=== PATIENT | male | born 1945 | race American Indian/Alaskan Native ===

== ENCOUNTER 2018-05-14 10:50 | Inpatient (IN) | payer MEDICARE ==
[~2018-05-14] VITALS: Ht 165.1 cm; Wt 88.6 kg
[2018-05-14 11:39] LABS: BASOPHILS % (AUTO) 0.1 % (0-1); EOSINOPHILS # (AUTO) 0.1 X10'3 (0-0.9); HEMATOCRIT 43.9 % (42.0-52.0); HEMOGLOBIN 14.7 g/dl (14.0-17.9); LYMPHOCYTES # (AUTO) 0.9 X10'3 (1.1-4.8); LYMPHOCYTES % (AUTO) 10.4 % (21-51); MEAN CORPUSCULAR HEMOGLOBIN 30.8 PG (27.0-31.0); MEAN CORPUSCULAR HGB CONC 33.5 % (33.0-36.5); MEAN CORPUSCULAR VOLUME 91.9 FL (78-98); MEAN PLATELET VOLUME 8.5 FL (7.4-10.4); MONOCYTES # (AUTO) 0.7 X10'3 (0-0.9); NEUTROPHILS % (AUTO) 80.5 % (42-75); PLATELET COUNT 177 X10'3 (140-440); RED BLOOD COUNT 4.78 X10'6 (4.70-6.10); RED CELL DISTRIBUTION WIDTH 13.7 % (11.5-14.5); WHITE BLOOD COUNT 8.6 X10'3 (4.5-11.0)
[2018-05-14] MEDS ORDERED: normal saline 1000ML IV soln IVB ONE (11:40)
[2018-05-14 12:00] LABS: PARTIAL THROMBOPLASTIN TIME 34 SECONDS (22-32); PROTHROMBIN TIME 9.9 SECONDS (9.0-12.0)
[2018-05-14 12:05] LABS: ALANINE AMINOTRANSFERASE 31 U/L (12-78); ALBUMIN 3.5 G/DL (3.4-5.0); ALBUMIN/GLOBULIN RATIO 0.8 (1.1-1.5); ALKALINE PHOSPHATASE 67 IU/L (46-116); ANION GAP 7 (8-16); ASPARTATE AMINO TRANSFERASE 22 U/L (10-37); BILIRUBIN,TOTAL 0.7 MG/DL (0.1-1.0); BLOOD UREA NITROGEN 17 MG/DL (7-18); BUN/CREATININE RATIO 16.7 (5.4-32.0); CALCIUM 8.8 MG/DL (8.5-10.1); CHLORIDE 102 MMOL/L (99-107); CREATININE 1.02 MG/DL (0.60-1.10); GLUCOSE 135 MG/DL (70-104); MAGNESIUM 1.7 MG/DL (1.5-2.4); POTASSIUM 3.7 MMOL/L (3.5-5.1); SODIUM 141 MMOL/L (135-145); TOTAL CARBON DIOXIDE 32.2 MMOL/L (24-32); eGFR 72 ML/MIN
[2018-05-14] MEDS ORDERED: ipratropium/albuterol 3ml nebule NEB ONE (12:30)
[2018-05-14] MEDS ORDERED: CefTRIAXone/D5W-Rocephin 1gm 50 ML IV ONE (13:20)
[2018-05-14 13:24] LABS: CLARITY,URINE CLEAR (Clear); COLOR,URINE YELLOW (Yellow); GLUCOSE, URINE NEGATIVE (Neg); KETONES,URINE NEGATIVE (Neg); LEUKOCYTE ESTERASE ,URINE NEGATIVE (Neg); NITRITES, URINE NEGATIVE (Neg); OCCULT BLOOD,URINE NEGATIVE (Neg); PH,URINE 7.5 (4.8-8.0); PROTEIN,URINE 100 mg/dl (Neg)
[2018-05-14 13:40] LABS: UA COLLECTION TYPE CLN CATCH MIDSTREAM
[2018-05-14] MEDS ORDERED: magnesium 4gm in 100ml NS 100 ML IV PRN (13:40)
[2018-05-14] MEDS ORDERED: magnesium hydroxide 30ml (MOM) UD suspension PO PRN (13:40)
[2018-05-14] MEDS ORDERED: potassium Cl 20 mEq SR tablet PO PRN ×2 (13:40)
[2018-05-14] MEDS ORDERED: ondansetron/PF 4mg/2ml inj IV PRN (13:40)
[2018-05-14] MEDS ORDERED: magnesium Cl slow-release 64mg tablet PO PRN (13:40)
[2018-05-14] MEDS ORDERED: potassium Cl 40MEQ/NS 500ml 500 ML IV PRN ×2 (13:40)
[2018-05-14] MEDS ORDERED: mag hydrox/Alum hydrox/simeth 30ml oral suspension PO PRN (13:40)
[2018-05-14 13:43] LABS: BACTERIA,URINE NONE SEEN /HPF (Neg); COARSE GRANULAR CAST 0-3 /LPF (NEGATIVE); HYALINE CASTS 0-3 /LPF (NEGATIVE); MUCUS STRANDS NONE SEEN /LPF (Neg); RBC,URINE 0-2 /HPF (0-2); SQUAMOUS EPITHELIAL CELL,UR NONE SEEN /LPF (FEW); WBC,URINE 0-4 /HPF (0-4)
[2018-05-14] MEDS: CefTRIAXone/D5W-Rocephin 1gm 50 ML IV SCH (13:55)
[2018-05-14] MEDS ORDERED: azithromycin/NS 500mg/250ml 250 ML IV ONE ×2 (14:05→15:50)
[2018-05-14] MEDS: normal saline 1000ml 1,000 ML IV SCH ×2 (14:31→17:49)
[2018-05-14] MEDS ORDERED: NAPR-1154 PO (14:49)
[2018-05-14] MEDS ORDERED: GABA-532 PO (14:49)
[2018-05-14] MEDS ORDERED: PSEU60TA22 PO (14:49)
[2018-05-14 16:00] VITALS: BP 146/64
[2018-05-14] MEDS ORDERED: morphine 2 MG/ML inj. syringe IV PRN (16:00)
[2018-05-14] MEDS: acetaminophen 325mg tablet PO PRN (16:18)
[2018-05-14] MEDS: methylPREDNISolone sod succ/PF 40mg inj. IV SCH ×2 (17:49→23:42)
[2018-05-14] MEDS: lisinopril 10 MG tablet PO SCH (17:50)
[2018-05-14 18:00] VITALS: BP 146/64
[2018-05-14] MEDS: heparin, porcine 5000 units/ml vial SQ SCH (19:53)
[2018-05-14] MEDS ORDERED: GUAI600T45 PO (20:13)
[2018-05-14] MEDS ORDERED: ASPI-529 PO (20:13)
[2018-05-14] MEDS ORDERED: ACET-2119 PO (20:13)
[2018-05-14] MEDS: gabapentin 300mg capsule PO SCH (20:27)
[2018-05-14] MEDS ORDERED: pneumococcal 23-VAL P-sac vacc 25 mcg/0.5ml vial IMVAC ONE (20:30)
[2018-05-14] MEDS ORDERED: albuterol 2.5 MG/3 ML nebule NEB PRN (21:10)
[2018-05-14 22:00] VITALS: BP 134/74
[2018-05-15 06:00] VITALS: BP 140/94
[2018-05-15 06:12] LABS: BASOPHILS % (AUTO) 0.1 % (0-1); EOSINOPHILS % (AUTO) 0 % (0-6); HEMATOCRIT 42.2 % (42.0-52.0); HEMOGLOBIN 14.1 g/dl (14.0-17.9); LYMPHOCYTES # (AUTO) 0.7 X10'3 (1.1-4.8); LYMPHOCYTES % (AUTO) 6.8 % (21-51); MEAN CORPUSCULAR HEMOGLOBIN 30.8 PG (27.0-31.0); MEAN CORPUSCULAR HGB CONC 33.5 % (33.0-36.5); MEAN PLATELET VOLUME 8.6 FL (7.4-10.4); MONOCYTES # (AUTO) 0.3 X10'3 (0-0.9); MONOCYTES % (AUTO) 2.7 % (2-12); NEUTROPHILS % (AUTO) 90.4 % (42-75); PLATELET COUNT 191 X10'3 (140-440); RED BLOOD COUNT 4.59 X10'6 (4.70-6.10); RED CELL DISTRIBUTION WIDTH 13.7 % (11.5-14.5); WHITE BLOOD COUNT 11.1 X10'3 (4.5-11.0)
[2018-05-15 06:38] LABS: ALANINE AMINOTRANSFERASE 29 U/L (12-78); ALBUMIN 2.7 G/DL (3.4-5.0); ALBUMIN/GLOBULIN RATIO 0.6 (1.1-1.5); ALKALINE PHOSPHATASE 52 IU/L (46-116); ANION GAP 5 (8-16); ASPARTATE AMINO TRANSFERASE 21 U/L (10-37); BILIRUBIN,TOTAL 0.6 MG/DL (0.1-1.0); BLOOD UREA NITROGEN 16 MG/DL (7-18); BUN/CREATININE RATIO 18.4 (5.4-32.0); CALCIUM 8.7 MG/DL (8.5-10.1); CHLORIDE 104 MMOL/L (99-107); CREATININE 0.87 MG/DL (0.60-1.10); GLUCOSE 191 MG/DL (70-104); MAGNESIUM 1.8 MG/DL (1.5-2.4); POTASSIUM 4.5 MMOL/L (3.5-5.1); SODIUM 140 MMOL/L (135-145); TOTAL CARBON DIOXIDE 30.6 MMOL/L (24-32); TOTAL PROTEIN 7.2 G/DL (6.4-8.2); eGFR 87 ML/MIN
[2018-05-15] MEDS: gabapentin 300mg capsule PO SCH ×3 (07:15→20:04)
[2018-05-15] MEDS: CefTRIAXone/D5W-Rocephin 1gm 50 ML IV SCH (07:15)
[2018-05-15] MEDS: methylPREDNISolone sod succ/PF 40mg inj. IV SCH ×3 (07:15→23:57)
[2018-05-15] MEDS: lisinopril 10 MG tablet PO SCH (07:16)
[2018-05-15] MEDS: heparin, porcine 5000 units/ml vial SQ SCH ×2 (07:17→20:04)
[2018-05-15] MEDS ORDERED: azithromycin/NS 500mg/250ml 250 ML IV SCH (08:00)
[2018-05-15] MEDS: K and/or MAG REPLACEMENT MC SCH (08:00)
[2018-05-15] MEDS: acetaminophen 325mg tablet PO PRN (08:48)
[2018-05-15] MEDS ORDERED: HYDROcodone/acetaminophen 5mg/325mg tablet PO PRN (10:40)
[2018-05-15] MEDS ORDERED: naproxen 500mg tablet PO PRN (10:50)
[2018-05-15] MEDS: levoFLOXACIN-Levaquin 750MG/D5 150 ML IV SCH (10:58)
[2018-05-15] MEDS: normal saline 1000ml 1,000 ML IV SCH (10:59)
[2018-05-15] MEDS: ipratropium/albuterol 3ml nebule NEB SCH ×4 (11:13→23:36)
[2018-05-15 18:00] VITALS: BP 127/84
[2018-05-15] MEDS: guaiFENesin ER 600mg tablet PO SCH (20:04)
[2018-05-15] MEDS: acetaminophen 325mg tablet PO SCH (20:04)
[2018-05-15 22:00] VITALS: BP 136/81
[2018-05-16] MEDS: ipratropium/albuterol 3ml nebule NEB SCH ×4 (03:25→16:52)
[2018-05-16] MEDS: normal saline 1000ml 1,000 ML IV SCH (05:12)
[2018-05-16 06:33] LABS: BASOPHILS % (AUTO) 0.2 % (0-1); EOSINOPHILS # (AUTO) 0.2 X10'3 (0-0.9); EOSINOPHILS % (AUTO) 1.3 % (0-6); HEMATOCRIT 39.4 % (42.0-52.0); HEMOGLOBIN 13.2 g/dl (14.0-17.9); LYMPHOCYTES # (AUTO) 0.7 X10'3 (1.1-4.8); LYMPHOCYTES % (AUTO) 5.5 % (21-51); MEAN CORPUSCULAR HEMOGLOBIN 30.8 PG (27.0-31.0); MEAN CORPUSCULAR HGB CONC 33.5 % (33.0-36.5); MEAN CORPUSCULAR VOLUME 91.9 FL (78-98); MEAN PLATELET VOLUME 8.9 FL (7.4-10.4); MONOCYTES # (AUTO) 0.9 X10'3 (0-0.9); MONOCYTES % (AUTO) 6.9 % (2-12); NEUTROPHILS # (AUTO) 11.7 X10'3 (1.8-7.7); NEUTROPHILS % (AUTO) 86.1 % (42-75); PLATELET COUNT 259 X10'3 (140-440); RED BLOOD COUNT 4.29 X10'6 (4.70-6.10); RED CELL DISTRIBUTION WIDTH 13.6 % (11.5-14.5); WHITE BLOOD COUNT 13.6 X10'3 (4.5-11.0)
[2018-05-16 06:53] LABS: ALANINE AMINOTRANSFERASE 33 U/L (12-78); ALBUMIN 2.9 G/DL (3.4-5.0); ALBUMIN/GLOBULIN RATIO 0.7 (1.1-1.5); ALKALINE PHOSPHATASE 53 IU/L (46-116); ANION GAP 11 (8-16); ASPARTATE AMINO TRANSFERASE 24 U/L (10-37); BILIRUBIN,TOTAL 0.4 MG/DL (0.1-1.0); BLOOD UREA NITROGEN 26 MG/DL (7-18); BUN/CREATININE RATIO 27.4 (5.4-32.0); CALCIUM 8.8 MG/DL (8.5-10.1); CHLORIDE 105 MMOL/L (99-107); CREATININE 0.95 MG/DL (0.60-1.10); GLUCOSE 186 MG/DL (70-104); MAGNESIUM 1.9 MG/DL (1.5-2.4); POTASSIUM 3.9 MMOL/L (3.5-5.1); SODIUM 142 MMOL/L (135-145); TOTAL CARBON DIOXIDE 26.3 MMOL/L (24-32); TOTAL PROTEIN 7.1 G/DL (6.4-8.2); eGFR 78 ML/MIN
[2018-05-16 06:58] VITALS: BP 157/88
[2018-05-16] MEDS: K and/or MAG REPLACEMENT MC SCH (08:00)
[2018-05-16] MEDS: heparin, porcine 5000 units/ml vial SQ SCH ×2 (08:14→20:17)
[2018-05-16] MEDS: lisinopril 10 MG tablet PO SCH (08:14)
[2018-05-16] MEDS: guaiFENesin ER 600mg tablet PO SCH ×2 (08:14→20:16)
[2018-05-16] MEDS: gabapentin 300mg capsule PO SCH ×3 (08:14→20:16)
[2018-05-16] MEDS: levoFLOXACIN-Levaquin 750MG/D5 150 ML IV SCH (08:14)
[2018-05-16] MEDS: acetaminophen 325mg tablet PO SCH ×2 (08:14→20:16)
[2018-05-16] MEDS: methylPREDNISolone sod succ/PF 40mg inj. IV SCH ×2 (08:15→16:39)
[2018-05-16] MEDS: aspirin 325mg tablet PO SCH (08:15)
[2018-05-16] MEDS ORDERED: iohexol 350MG/ML 100ml bottle IV ONE (10:09)
[2018-05-16 11:15] VITALS: BP 140/81
[2018-05-16 18:00] VITALS: BP 160/97
[2018-05-16] MEDS: carvedilol 6.25mg tablet PO SCH (20:16)
[2018-05-16 20:19] VITALS: BP 164/104
[2018-05-16] MEDS: lactobacillus rhamnosus 10,000 MMU CELLS/CAPSULE PO SCH (20:24)
[2018-05-16 22:00] VITALS: BP 168/95
[2018-05-17 05:56] LABS: BASOPHILS % (AUTO) 0 % (0-1); EOSINOPHILS # (AUTO) 0.2 X10'3 (0-0.9); EOSINOPHILS % (AUTO) 1.7 % (0-6); HEMATOCRIT 40.7 % (42.0-52.0); HEMOGLOBIN 13.6 g/dl (14.0-17.9); LYMPHOCYTES # (AUTO) 0.7 X10'3 (1.1-4.8); MEAN CORPUSCULAR HEMOGLOBIN 30.7 PG (27.0-31.0); MEAN CORPUSCULAR HGB CONC 33.4 % (33.0-36.5); MEAN CORPUSCULAR VOLUME 91.8 FL (78-98); MEAN PLATELET VOLUME 8.6 FL (7.4-10.4); MONOCYTES # (AUTO) 1.2 X10'3 (0-0.9); MONOCYTES % (AUTO) 8.1 % (2-12); NEUTROPHILS # (AUTO) 12.5 X10'3 (1.8-7.7); NEUTROPHILS % (AUTO) 85.2 % (42-75); PLATELET COUNT 312 X10'3 (140-440); RED BLOOD COUNT 4.43 X10'6 (4.70-6.10); RED CELL DISTRIBUTION WIDTH 13.7 % (11.5-14.5); WHITE BLOOD COUNT 14.7 X10'3 (4.5-11.0)
[2018-05-17 06:06] LABS: ALANINE AMINOTRANSFERASE 37 U/L (12-78); ALBUMIN 2.8 G/DL (3.4-5.0); ALBUMIN/GLOBULIN RATIO 0.7 (1.1-1.5); ALKALINE PHOSPHATASE 58 IU/L (46-116); ANION GAP 9 (8-16); ASPARTATE AMINO TRANSFERASE 22 U/L (10-37); BILIRUBIN,TOTAL 0.5 MG/DL (0.1-1.0); BLOOD UREA NITROGEN 29 MG/DL (7-18); BUN/CREATININE RATIO 29.9 (5.4-32.0); CALCIUM 8.7 MG/DL (8.5-10.1); CHLORIDE 106 MMOL/L (99-107); CREATININE 0.97 MG/DL (0.60-1.10); GLUCOSE 130 MG/DL (70-104); POTASSIUM 4.1 MMOL/L (3.5-5.1); SODIUM 142 MMOL/L (135-145); TOTAL CARBON DIOXIDE 27.2 MMOL/L (24-32); TOTAL PROTEIN 6.8 G/DL (6.4-8.2); eGFR 76 ML/MIN
[2018-05-17 06:33] VITALS: BP 169/98
[2018-05-17] MEDS: lactobacillus rhamnosus 10,000 MMU CELLS/CAPSULE PO SCH (07:40)
[2018-05-17] MEDS: gabapentin 300mg capsule PO SCH ×2 (07:40→12:07)
[2018-05-17] MEDS: levoFLOXACIN-Levaquin 750MG/D5 150 ML IV SCH (07:40)
[2018-05-17] MEDS: aspirin 325mg tablet PO SCH (07:40)
[2018-05-17] MEDS: K and/or MAG REPLACEMENT MC SCH (07:41)
[2018-05-17] MEDS: guaiFENesin ER 600mg tablet PO SCH (07:41)
[2018-05-17] MEDS: lisinopril 10 MG tablet PO SCH (07:41)
[2018-05-17] MEDS: carvedilol 6.25mg tablet PO SCH (07:41)
[2018-05-17] MEDS: acetaminophen 325mg tablet PO SCH (07:41)
[2018-05-17] MEDS: heparin, porcine 5000 units/ml vial SQ SCH (07:42)
[2018-05-17 11:33] VITALS: BP 146/78
[2018-05-17] MEDS ORDERED: LISI10TA4 PO (13:03)
[2018-05-17] MEDS ORDERED: CARV6.253 PO (13:03)
[2018-05-17] MEDS ORDERED: LEVO750T21 PO (13:03)
== END 2018-05-17 13:45 | disposition home or self-care (01) | DRG 871 ==
LOC: ER 10:51 → ED HOLD 13:40 → ORTHO 4S 15:49 → ED HOLD 05-15 10:23 → ORTHO 4S 05-15 10:25
PROVIDERS: ADMIT Internal Medicine; ATTEND Internal Medicine
PROC: B32T1ZZ Computerized Tomography (CT Scan) of Left Pulmonary Artery using Low Osmolar Contrast (ICD-10-PCS; principal; 2018-05-16)
PROC: B3201ZZ Computerized Tomography (CT Scan) of Thoracic Aorta using Low Osmolar Contrast (ICD-10-PCS; 2018-05-16)
PROC: B32S1ZZ Computerized Tomography (CT Scan) of Right Pulmonary Artery using Low Osmolar Contrast (ICD-10-PCS; 2018-05-16)
DX: A41.9 Sepsis, unspecified organism (principal); J18.1 Lobar pneumonia, unspecified organism; J96.01 Acute respiratory failure with hypoxia; G62.9 Polyneuropathy, unspecified; G89.4 Chronic pain syndrome; K86.9 Disease of pancreas, unspecified; I10 Essential (primary) hypertension; M54.9 Dorsalgia, unspecified; R91.1 Solitary pulmonary nodule; Z88.5 Allergy status to narcotic agent; Z79.899 Other long term (current) drug therapy
CPT/HCPCS: 36415; 71046; 71275; 80053; 81001; 83605; 83735; 84145; 85025; 85610; 85730; 87040; 87070; 87502; 87503; 93005; 93306; 94640; 94667; 94668; 94760; 96360; 99285; G0378; J0456; J0696; J1644; J1956; J2920; J7030; Q9967

== ENCOUNTER 2021-11-13 15:35 | Outpatient (CLI) | payer MEDICARE ==
[~2021-11-13] VITALS: Ht 165.1 cm; Wt 88.5 kg
[~2021-11-13 15:35] MED LIST: ACET-2119 PO; ASPI-529 PO; CARV6.253 PO; GABA-532 PO; GUAI600T45 PO; LISI10TA27 PO; NAPR-1154 PO
[2021-11-13] MEDS ORDERED: albuterol 2.5 MG/3 ML nebule NEB ONE (16:20)
== END 2021-11-13 23:59 | disposition home or self-care (01) ==
LOC: RT 15:35
PROVIDERS: ATTEND Family Medicine
DX: R94.2 Abnormal results of pulmonary function studies (principal); R06.00 Dyspnea, unspecified
CPT/HCPCS: 94060; 94760

== ENCOUNTER 2024-09-12 08:57 | Outpatient (CLI) | payer MEDICARE ==
[~2024-09-12 08:57] MED LIST changes: +CYCL-394 PO; +FLUT1AER INH; +GABA300C PO; +LOSA50TA64 PO; +MELO5CAP3; +PRED10TA PO
[2024-09-12 09:47] LABS: ALBUMIN 3.8 G/DL (3.4-5.0); ANION GAP 7 (8-16); BLOOD UREA NITROGEN 21 MG/DL (7-18); BUN/CREATININE RATIO 23.1 (10.0-20.0); CALCIUM 8.8 MG/DL (8.5-10.1); CHLORIDE 108 MMOL/L (99-107); CREATININE 0.91 MG/DL (0.60-1.10); GLUCOSE 121 MG/DL (70-104); POTASSIUM 4.3 MMOL/L (3.5-5.1); SODIUM 141 MMOL/L (135-145); TOTAL CARBON DIOXIDE 26.2 MMOL/L (24-32); eGFR 81 ML/MIN
[2024-09-12] MEDS ORDERED: iohexol 300mg/ml 100ml inj. ONE (09:55)
--- NOTE | 2024-09-12 10:59 | RADIOLOGY REPORT ---
Date: 09/12/2024 09:36 AM Examination: DI ABDOMEN,SINGLE VIEW(KUB) History: GROSS HEMATURIA Comparison: None TECHNIQUE: Frontal views of the abdomen was obtained. FINDINGS: Bowel gas pattern is unremarkable. The lung bases are unremarkable. No acute osseous abnormality identified. IMPRESSION: Nonobstructive bowel gas pattern. Surgical clips project over the right upper quadrant.
--- NOTE | 2024-09-12 11:11 | RADIOLOGY REPORT ---
EXAM: CT CT ABDOMEN PELVIS W/ IV CONTRAST HISTORY: GROSS HEMATURIA COMPARISON: KUB from earlier same day TECHNIQUE: Helical CT images of the abdomen and pelvis were performed with and without 100 mL Omnipaq ue 350 IV contrast. Postcontrast images include venous phase images of the abdomen and delayed phase images of the abdomen and pelvis. Sagittal and coronal reformatted images were obtained. This CT exam was performed using one or more of the following dose reduction techniques: Automated exposure contr ol, adjustment of the mA and/or kV according to patient size, or use of iterative reconstruction tech nique. Radiation Dose: Abdomen/Pelvis: CTDIvol 80.27 mGy; DLP 3846.29 mGy*cm. FINDINGS: Urinary tract: No urinary tract calculi, hydronephrosis, hydroureter, or suspicious masses are identi fied bilaterally. No renal collecting system or ureteral filling defects are identified. There is a r ight renal inferior pole exophytic simple cortical cyst. The prostate is moderately enlarged, and exe rts mild mass effect on the urinary bladder. The urinary bladder is otherwise unremarkable without c alculi, masses, or abnormal wall thickening. Miscellaneous: The lung bases are clear. The heart is not enlarged. There is a 14 mm cystic lesion o f the pancreatic tail (image 34, series 3). The liver, spleen, gallbladder, and adrenal glands are un remarkable. There is increased attenuation in the central mesenteric fat. No abdominal aortic aneurys m or dissection. No abnormal bowel dilatation, free air, free fluid, or suspicious adenopathy. There are sigmoid colon diverticula without evidence of acute diverticulitis. The appendix is normal in cornelio earance. There are bilateral fatty inguinal indirect hernias. There are postoperative changes L4 lami nectomy without presence of metallic fixation hardware. There is advanced lumbar degenerative disc di sease and facet arthropathy with multilevel significant neural foraminal stenosis bilaterally. There is [id number] spinal canal stenosis at every disc level L2-L5. There is moderate right and aditi re left hip osteoarthritis. IMPRESSION: 1. No urinary tract neoplastic masses, calculi, or obstruction bilaterally. 2. Moderate prostatic enlargement with mass effect on the urinary bladder lumen. 3. Postoperative changes of cholecystectomy and L4 laminectomy. 4. Mesenteric panniculitis. 5. 14 mm cystic lesion of the pancreatic tail. Recommend follow-up pre and post IV contrast MRI of t he abdomen for better characterization. 6. Fecal retention in the colon suggestive of constipation. There are sigmoid colon diverticula with out evidence of acute diverticulitis. 7. Advanced lumbar degenerative disc disease and facet arthropathy with multilevel significant neural foraminal stenosis bilaterally. This may be better characterized with noncontrast MRI of the lumbar spine.
== END 2024-09-12 23:59 | disposition home or self-care (01) ==
LOC: 64 CT 08:57
PROVIDERS: ATTEND Urology
DX: N28.1 Cyst of kidney, acquired (principal); R31.0 Gross hematuria; M47.816 Spondylosis without myelopathy or radiculopathy, lumbar region; N40.0 Benign prostatic hyperplasia without lower urinary tract symptoms; Z90.49 Acquired absence of other specified parts of digestive tract; M51.369 Other intervertebral disc degeneration, lumbar region without mention of lumbar back pain or lower extremity pain
CPT/HCPCS: 36415; 74018; 74178; 80048; Q9967